=== PATIENT | male | born 2000 | race Hispanic/Latino ===

== ENCOUNTER 2024-02-10 09:30 | Emergency (ER) | payer SELFPAY ==
[~2024-02-10] VITALS: Ht 172.7 cm; Wt 65.0 kg
[2024-02-10 09:30] VITALS: BP 153/89; PULSE 63; RESP 20; TEMP 97.8; O2SAT 98
[2024-02-10] MEDS: BOOSTRIX IM ONE ×2 (10:10→10:25)
[2024-02-10] MEDS ORDERED: ANCEF ONE (10:25)
[2024-02-10] MEDS ORDERED: WATER 20 ML ONE (10:25)
[2024-02-10] MEDS ORDERED: BOOSTRIX IM ONE (10:25)
[2024-02-10] MEDS: ANCEF IM STA (10:25)
[2024-02-10 11:00] VITALS: BP 135/70; PULSE 69; RESP 20; O2SAT 99
[2024-02-10] MEDS: KEFLEX PO STA (11:05)
[2024-02-10] MEDS ORDERED: KEFLEX PO ONE (11:07)
== END 2024-02-10 11:08 | disposition home or self-care (01) ==
LOC: ER 09:30
DX: S61.431A Puncture wound without foreign body of right hand, initial encounter (principal); L24.9 Irritant contact dermatitis, unspecified cause; W22.03XA Walked into furniture, initial encounter; Y93.89 Activity, other specified; Y92.89 Other specified places as the place of occurrence of the external cause; Y99.8 Other external cause status
CPT/HCPCS: 99283; 90471; 90715; 73130; J0690; A4216